=== PATIENT | male | born 1945 | race African-American/Black ===

== ENCOUNTER 2017-02-22 21:19 | Emergency (ER) | payer MEDICARE ==
[~2017-02-22] VITALS: Ht 188 cm; Wt 81.6 kg
[2017-02-22 21:20] VITALS: BP 158/88
[2017-02-22] MEDS ORDERED: Acetaminophen 500mg (ES) tab ORAL ONE (22:00)
[2017-02-22] MEDS ORDERED: Ipratropium 0.02% Inh Soln 2.5ml UD HHN ONE (22:00)
[2017-02-22] MEDS ORDERED: Albuterol ud Inhalation HHN ONE (22:00)
[2017-02-22] MEDS ORDERED: Solu-MEDROL 125mg Inj IVP ONE (22:00)
[2017-02-22 23:27] LABS: APPEARANCE,URINE CLEAR; BILIRUBIN, URINE NEGATIVE (NEGATIVE); GLUCOSE, URINE (UA) NEGATIVE (NEGATIVE); KETONES,URINE NEGATIVE (NEGATIVE); LEUKOCYTE ESTERASE ,URINE NEGATIVE (NEGATIVE); NITRITE,URINE NEGATIVE (NEGATIVE); PH,URINE 6 (4.5-8.0); PROTEIN,URINE 3+ (NEGATIVE); UROBILINOGEN,URINE NORMAL MG/DL (0.0-1.0)
[2017-02-22 23:30] VITALS: BP 163/63
--- NOTE | 2017-02-22 23:38 | Emergency Room Report ---
History of Present Illness General Chief Complaint: Dyspnea/Respdistress Source: Patient, Family Member Present Illness HPI Is a 71-year-old male with a history COPD. He presents with respiratory distress and coughing for the last one to 2 days. Coughing productive sputum. Increased oxygenation knee. Occasional at home was 80-90% on 3 L. At baseline he used 2 L. His inhaler is not helping. Also with fever and chills. Chest tightness. EMS said sedation was 90% and they put him on nonrebreather mask. No nausea no vomiting. Has generalized weakness. Allergies: Coded Allergies: IODINE (Verified Allergy, Unknown, 02/22/17) Uncoded Allergies: CONTRAST (Allergy, Unknown, 02/22/17) Patient History Past Medical History: see triage record, old chart reviewed, HTN, COPD Past Surgical History: other Pertinent Family History: none Social History: Denies: smoking - Quit 5 year Immunizations: other Reviewed Nursing Documentation: PMH: Agreed, PSxH: Agreed Nursing Documentation-PMH Hx Hypertension: Yes Hx COPD: Yes Review of Systems Constitutional: Reports: fever, malaise, weakness Eye: Denies: eye pain, blurred vision ENT: Denies: ear pain, nose congestion, throat swelling Respiratory: Reports: cough, shortness of breath, wheezing, WELDON, sputum Cardiovascular: Denies: chest pain, palpitations Gastrointestinal: Denies: abdominal pain, diarrhea, nausea, vomiting Musculoskeletal: Denies: back pain, joint pain Skin: Denies: rash Neurological: Denies: headache, numbness Endocrine: Denies: increased thirst, increased urine Hematologic/Lymphatic: Denies: easy bruising All Other Systems: negative except mentioned in HPI Physical Exam Vital Signs Date Time Temp Pulse Resp B/P (MAP) Pulse Ox O2 Delivery O2 Flow Rate FiO2 02/22/17 21:10 100.0 108 22 158/88 96 Simple Mask 02/22/17 23:04 100 02/22/17 23:06 2.0 vital fever Sp02 EP Interpretation: abnormal General Appearance: moderate distress Head: normocephalic, atraumatic Eyes: bilateral eye PERRL, bilateral eye EOMI ENT: hearing grossly normal, normal pharynx Neck: full range of motion, supple, no meningismus Respiratory: chest non-tender, respiratory distress, decreased breath sounds, accessory muscle use, rhonchi, wheezing Cardiovascular #1: regular rate, rhythm, no murmur Gastrointestinal: normal bowel sounds, non tender, no mass, no organomegaly, no bruit, non-distended Musculoskeletal: back normal, normal range of motion Neurologic: alert, oriented x3 Psychiatric: mood/affect normal Skin: warm/dry Procedures Critical Care Time Critical Care Time Critical care is mandated in this patient who presented with sepsis and respiratory failure. Patient require my urgent intervention to attenuate the risks of metabolic and respiratory collapse which may lead to cardiovascular collapse and . Critical care time is 35 minutes excluding any reportable procedure. Critical care time included evaluation, multiple reevaluation, looking at old charts, interpreting laboratory and diagnostic data, discussing case with patient and family and consultants, and charting. Medical Decision Making Diagnostic Impression: Primary Impression: Sepsis Qualified Codes: A41.9 - Sepsis, unspecified organism Additional Impressions: Pneumonia Qualified Codes: J18.9 - Pneumonia, unspecified organism Acute and chronic respiratory failure with hypoxia NSTEMI (non-ST elevated myocardial infarction) Anemia Qualified Codes: D64.9 - Anemia, unspecified Leukopenia Qualified Codes: D72.819 - Decreased white blood cell count, unspecified MYRON (acute kidney injury) COPD with exacerbation ER Course Patient with acute on chronic respiratory failure. He has a fever concerning for possible pneumonia. 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 This was recently and nose today with results bone marrow biopsy. 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 I place him on azithromycin to cover for that. Also gave him Zosyn for water coverage. Patient was placed on BiPAP and he felt more comfortable with it. Breathing treatment given. I discussed the case with Dr. Trinh at [facility]. . He accepted the patient for critical care transfer. Sepsis reeval: Time: 137am VS: Temp 98, HR 77, RR 14, BP 113/48 Mental status: A&Ox3 CVS: RRR Lungs: better airmovement. Wheezing resolved. Abd: soft Ext: dry, no mottling. Laboratory Tests Test 02/22/17 22:30 02/22/17 22:56 02/23/17 01:03 White Blood Count 2.1 K/UL (4.8-10.8) *L Red Blood Count 3.14 M/UL (4.70-6.10) L Hemoglobin 10.3 G/DL (14.2-18.0) L Hematocrit 32.5 % (42.0-52.0) L Mean Corpuscular Volume 104 FL (80-99) H Mean Corpuscular Hemoglobin 32.8 PG (27.0-31.0) H Mean Corpuscular Hemoglobin Concent 31.6 G/DL (32.0-36.0) L Red Cell Distribution Width 15.3 % (11.6-14.8) H Platelet Count 522 K/UL (150-450) H Mean Platelet Volume 7.7 FL (6.5-10.1) Neutrophils (%) (Auto) % (45.0-75.0) Lymphocytes (%) (Auto) % (20.0-45.0) Monocytes (%) (Auto) % (1.0-10.0) Eosinophils (%) (Auto) % (0.0-3.0) Basophils (%) (Auto) % (0.0-2.0) Differential Total Cells Counted 100 Neutrophils % (Manual) 40 % (45-75) L Lymphocytes % (Manual) 48 % (20-45) H Monocytes % (Manual) 5 % (1-10) Eosinophils % (Manual) 5 % (0-3) H Basophils % (Manual) 2 % (0-2) Band Neutrophils 0 % (0-8) Platelet Estimate Adequate Platelet Morphology Normal Prothrombin Time 12.3 SEC (9.30-11.50) H Prothromb Time International Ratio 1.2 (0.9-1.1) H Activated Partial Thromboplast Time 30 SEC (23-33) Sodium Level 137 MMOL/L (136-145) Potassium Level 5.2 MMOL/L (3.5-5.1) H Chloride Level 104 MMOL/L (98-107) Carbon Dioxide Level 25 MMOL/L (21-32) Anion Gap 8 mmol/L (5-15) Blood Urea Nitrogen 34 mg/dL (7-18) H Creatinine 2.8 MG/DL (0.55-1.30) H Estimat Glomerular Filtration Rate mL/min (>60) Glucose Level 156 MG/DL (74-106) H Lactic Acid Level 0.80 mmol/L (0.66-2.22) Calcium Level 7.1 MG/DL (8.5-10.1) L Total Bilirubin 0.7 MG/DL (0.2-1.0) Aspartate Amino Transf (AST/SGOT) 35 U/L (15-37) Alanine Aminotransferase (ALT/SGPT) 36 U/L (12-78) Alkaline Phosphatase 133 U/L (46-116) H Total Creatine Kinase 78 U/L (26-308) Creatine Kinase MB 1.3 NG/ML (0.0-3.6) Creatine Kinase MB Relative Index 1.6 Troponin I 0.081 ng/mL (0.000-0.056) Total Protein 9.6 G/DL (6.4-8.2) H Albumin 2.9 G/DL (3.4-5.0) L Globulin 6.7 g/dL Albumin/Globulin Ratio 0.4 (1.0-2.7) L Urine Color Yellow Urine Appearance Clear Urine pH 6 (4.5-8.0) Urine Specific [place] 1.020 (1.005-1.035) Urine Protein 3+ (NEGATIVE) H Urine Glucose (UA) Negative (NEGATIVE) Urine Ketones Negative (NEGATIVE) Urine Occult Blood 1+ (NEGATIVE) H Urine Nitrite Negative (NEGATIVE) Urine Bilirubin Negative (NEGATIVE) Urine Urobilinogen Normal MG/DL (0.0-1.0) Urine Leukocyte Esterase Negative (NEGATIVE) Urine RBC 0-2 /HPF (0 - 0) H Urine WBC 0 /HPF (0 - 0) Urine Squamous Epithelial Cells Occasional /LPF Urine Bacteria None /HPF (NONE) Arterial Blood pH 7.256 (7.350-7.450) Arterial Blood Partial Pressure CO2 55.0 mmHg (35.0-45.0) H Arterial Blood Partial Pressure O2 63.5 mmHg (75.0-100.0) L Arterial Blood HCO3 23.9 mmol/L (22.0-26.0) Arterial Blood Oxygen Saturation 89.1 % (92.0-98.0) L Arterial Blood Base Excess -3.4 Jeremi Test Positive Lab Results Impression labs with elevated bun/creat EKG Diagnostic Results Rate: tachycardiac Rhythm: NSR ST Segments: other - LAD, RBBB, LVH Rhythm Strip Diag. Results Rhythm Strip Time: 23:38 EP Interpretation: yes Rate: 94 Rhythm: NSR, no PVC's, no ectopy Chest X-Ray Diagnostic Results Chest X-Ray Diagnostic Results : Chest X-Ray Ordered: Yes # of Views/Limited/Complete: 1 View Indication: Shortness of Breath EP Interpretation: Yes Interpretation: no effusion, no pneumothorax, other - b/l hilar adenopathy and increased interstitial markings. Impression: Other - b/l hilar adenopathy Electronically Signed by: Otto Barton MD Last Vital Signs Date Time Temp Pulse Resp B/P (MAP) Pulse Ox O2 Delivery O2 Flow Rate FiO2 02/22/17 23:06 113 24 98 Nasal Cannula 2.0 28 02/22/17 21:10 100.0 158/88 Status: improved Disposition: XFER SHT-TRM HOSP Condition: Serious OTTO BARTON M.D. Feb 22, 2017 23:38
[2017-02-22 23:44] LABS: COLOR,URINE YELLOW
[2017-02-22 23:45] LABS: ANION GAP 8 mmol/L (5-15); BLOOD UREA NITROGEN 34 mg/dL (7-18); CALCIUM 7.1 MG/DL (8.5-10.1); CARBON DIOXIDE 25 MMOL/L (21-32); CHLORIDE 104 MMOL/L (98-107); CREATININE 2.8 MG/DL (0.55-1.30); POTASSIUM 5.2 MMOL/L (3.5-5.1); SODIUM 137 MMOL/L (136-145)
[2017-02-22 23:56] LABS: ALANINE AMINOTRANSFERASE 36 U/L (12-78); ALBUMIN 2.9 G/DL (3.4-5.0); ALBUMIN/GLOBULIN RATIO 0.4 (1.0-2.7); ALKALINE PHOSPHATASE 133 U/L (46-116); ASPARTATE AMINO TRANSFERASE 35 U/L (15-37); BILIRUBIN,TOTAL 0.7 MG/DL (0.2-1.0); CKMB 1.3 NG/ML (0.0-3.6); CREATINE KINASE 78 U/L (26-308); HEMATOCRIT 32.5 % (42.0-52.0); HEMOGLOBIN 10.3 G/DL (14.2-18.0); MEAN CORPUSCULAR VOLUME 104 FL (80-99); PLATELET COUNT 522 K/UL (150-450); RED BLOOD COUNT 3.14 M/UL (4.70-6.10); RED CELL DISTRIBUTION WIDTH 15.3 % (11.6-14.8)
[2017-02-23 00:05] LABS: WHITE BLOOD COUNT 2.1 K/UL (4.8-10.8)
[2017-02-23 00:10] LABS: INR 1.2 (0.9-1.1)
[2017-02-23] MEDS ORDERED: Piperacillin/Tazobactam 3.375 GM in NS 110 ML IVPB ONE (00:15)
[2017-02-23] MEDS ORDERED: Aspirin Baby 81mg ORAL ONE (00:15)
[2017-02-23] MEDS ORDERED: Azithromycin 500 MG in NS 275 ML IV ONE (00:15)
[2017-02-23] MEDS ORDERED: Azithromycin 500mg Inj IV ONE (00:28)
[2017-02-23] MEDS ORDERED: Zosyn 3.375gm inj ONE (00:29)
[2017-02-23 01:30] VITALS: BP 113/48
[2017-02-23 03:30] VITALS: BP 115/56
[2017-02-23] MEDS ORDERED: AMLODIPINE BESY10 MG ORAL (04:36)
[2017-02-23] MEDS ORDERED: ATORVASTATIN CA40 MG ORAL (04:36)
[2017-02-23] MEDS ORDERED: OMEPRAZOLE20 M3 ORAL (04:36)
[2017-02-23] MEDS ORDERED: STOOL SOFTENER1 EAC4 PO (04:36)
[2017-02-23] MEDS ORDERED: FUROSEMIDE40 MG ORAL (04:36)
[2017-02-23] MEDS ORDERED: PREDNISONE20 MG ORAL (04:36)
[2017-02-23] MEDS ORDERED: HYDRALAZINE HCL50 MG ORAL (04:36)
[2017-02-23] MEDS ORDERED: CLOPIDOGREL75 MG ORAL (04:36)
[2017-02-23] MEDS ORDERED: VALACYCLOVIR500 MG ORAL (04:36)
[2017-02-23] MEDS ORDERED: METOPROLOL TART25 MG ORAL (04:36)
[2017-02-23] MEDS ORDERED: TAMSULOSIN HCL0.4 MG ORAL (04:36)
[2017-02-23] MEDS ORDERED: ASPIRIN81 MG ORAL (04:36)
[2017-02-23 05:30] VITALS: BP 114/56
[2017-02-23 08:04] VITALS: BP 120/54
--- NOTE | 2017-02-23 08:22 | Diagnostic Imaging Report ---
Indication: Shortness of breath Technique: XRAY Chest 1v Comparison: None Findings: Heart size within normal limits. There is bilateral hilar prominence. Bilateral interstitial opacities/edema with patchy bilateral airspace opacities. No large pleural effusion. No definite pneumothorax. Multilevel degenerative changes are seen in the thoracic spine. No acute osseous abnormality is seen. Impression: Interstitial opacification/edema with bilateral patchy airspace opacities. These findings may be related to fluid overload/interstitial edema with areas of developing alveolar edema. Multifocal pneumonia is not entirely excluded. Clinical correlation and follow-up exam recommended. Bilateral hilar prominence may be related to vascular ectasia versus adenopathy. Consider CT scan of the chest. This is concordant with the preliminary interpretation of the treating ER physician. Patient transferred to critical care at [facility] at time of final report.
[2017-02-23] MEDS ORDERED: Albuterol/Ipratropium 3ml neb HHN SCH (09:15)
[2017-02-23 09:28] VITALS: BP 142/67
[2017-02-23 10:23] VITALS: BP 142/67
--- NOTE | 2017-02-27 19:32 | Cardiology Report ---
APPROVED REPORT EKG Measurement Heart [id number] Sinus tachycardia Possible Left atrial enlargement Left axis deviation Left ventricular hypertrophy with QRS widening and repolarization abnormality Cannot rule out Septal infarct, age undetermined Abnormal ECG
== END 2017-02-23 10:26 | disposition short-term general hospital (02) ==
LOC: EDBD 21:19 → EMR 21:30
DX: A41.9 Sepsis, unspecified organism (principal); J18.9 Pneumonia, unspecified organism; R06.00 Dyspnea, unspecified; J44.9 Chronic obstructive pulmonary disease, unspecified; I10 Essential (primary) hypertension
CPT/HCPCS: 36415; 36600; 71010; 80053; 81003; 82550; 82553; 82803; 83605; 84484; 85007; 85025; 85610; 85730; 86710; 87040; 87181; 93005; 94640; 94660; 94664; 96374; 96375; 99291; J0456; J2543; J2930; J7050; J7620